=== PATIENT | female | born 1965 | race Caucasian/White ===

== ENCOUNTER → 2016-09-19 | Outpatient (CLI) | payer OTHER ==
[~2016-09-19] MED LIST: AMLODIPINE-BEN1 EAC1 PO; PROTONIX PO; SANCTURA XR60 MG PO
--- NOTE | ~2016-09-19 | US6 ---
[facility] A Service of [facility] & [facility] RADIOLOGY TEXT RESULTS PATIENT: LV AZEVEDO LOCATION: [place] : 61 UNIT #: [id number] AGE: [address]: Jennifer Kulkarni MD SEX: F ORDER DR: [id number] [place] [id number] O MR#: [id number] Acc #: [id number] NAME: LV AZEVEDO : 1965 SEX: F STUDY DATE/TIME: 09/19/2016 8:44 UNIT: [facility] ROOM: STUDY DESCRIPTION: US Abdominal Limited Attending Physician: Jennifer Kulkarni M.D. Referring Physician: Jennifer Kulkarni M.D. Ordering Physician: Jennifer Kulkarni M.D. Primary Care Physician: Jennifer Kulkarni M.D. MEDICAL IMAGING REPORT This report is preliminary unless electronic signature is present. EXAM Right upper quadrant ultrasound 09/19/2016 HISTORY Right upper quadrant abdominal pain for 2 weeks with nausea FINDINGS Ultrasound examination of the gallbladder is negative. There is no cholelithiasis, gallbladder wall thickening, or bile duct dilatation. The visualized liver is negative. IMPRESSION Negative gallbladder ultrasound examination. Dictated by... Wayne Razo M.D. THIS IS AN ELECTRONICALLY VERIFIED REPORT Wayne Razo M.D. at 09/20/2016 8:07 AM KRT/to TD: 09/19/2016 11:39 JOB #: [id number] MEDICAL IMAGING REPORT Page 1 of 1
== END | disposition home or self-care (01) ==
LOC: SGUS 07:56
DX: R10.11 Right upper quadrant pain (principal)
CPT/HCPCS: 76705